=== PATIENT | female | born 1975 | race Caucasian/White ===

== ENCOUNTER 2021-07-15 08:07 | Inpatient (IN) | payer MEDICAID, SELFPAY ==
[2021-07-15] VITALS (22 sets, daily range): BP systolic 109–149; BP diastolic 47–86; PULSE 70–111; RESP 12–20; TEMP 36.6–43; O2SAT 87–99; BMI 23.1; BMI 24.0
--- NOTE | 2021-07-15 08:15 | HMH.EDGENADL ---
ED Disposition Clinical Impression: IVDA (intravenous drug abuse) complicating Cellulitis Qualifiers: Site of cellulitis: extremity Site of cellulitis of extremity: lower extremity Laterality: right Qualified Code(s): L03.115 - Cellulitis of right lower limb Disposition: Admitted As Inpatient Condition on Discharge: Good - Critical Care Critical Care Time: No Attestation: On , the high probability of a clinically significant, sudden or life threatening deterioration of the following system(s) required my full and direct attention, intervention and personal management. The time I documented below is in addition to time spent performing reported procedures but includes the following listed in this critical care notation. Medical Decision Making - Medical Records Medical records reviewed: Yes: I reviewed the patient's medical records. - [place] Inquiry Pt receiving controlled substance: No Vital Signs: 07/15/21 08:08 Temperature 98.4 F Temperature Source Oral Pulse Rate [Right Radial] 91 H Respiratory Rate 18 Blood Pressure [Right Arm] 111/47 L Blood Pressure Mean [Right Arm] 68 Blood Pressure Source [Right Arm] Automatic Cuff Blood Pressure Position [Right Arm] Sitting 02 Sat by Pulse Oximetry 97 Oxygen Delivery Method Room Air - Lab Data Lab results reviewed: Yes: I reviewed the patient's lab results. Lab Results 07/15/21 08:15: SARS-CoV-2 (PCR) Not detected, Influenza A Untype (PCR) Not detected, Influenza Type B (PCR) Not detected 07/15/21 08:30: WBC 8.0, RBC 4.24, Hgb 13.4, Hct 41.2, MCV 97.1, MCH 31.5 H, MCHC 32.5, RDW 14.9, Plt Count 143, MPV 12.3 H, Neut % (Auto) 71.4, Lymph % (Auto) 19.8, [place] % (Auto) 7.7, Eos % (Auto) 0.6, Baso % (Auto) 0.4, Neut # (Auto) 5.7, Lymph # (Auto) 1.6, [place] # (Auto) 0.6, Eos # (Auto) 0.1, Baso # (Auto) 0.0 07/15/21 08:30: Sodium 142, Potassium 3.5, Chloride 105, Carbon Dioxide 27, Anion Gap 13.5, BUN 4 L, Creatinine 0.40 L, Estimated Creat Clear 170, Estimated GFR 172, Est GFR ( Amer) 208, Glucose 113 H, Calcium 8.7, Total Bilirubin 0.4, AST 25, ALT 13, Alkaline Phosphatase 101, Total Protein 8.0, Albumin 3.7, Globulin 4.3 H, Albumin/Globulin Ratio 0.9 L 07/15/21 08:30: Lactate 1.3 07/15/21 08:30: ESR 67 H 07/15/21 08:30: C-Reactive Protein 236.9 H 07/15/21 08:50: Urine Color Yellow, Urine Appearance Clear, Urine pH 6.0, Ur Specific [place] <= 1.005, Urine Protein Negative, Urine Glucose (UA) Trace, Urine Ketones Negative, Urine Blood Trace-i, Urine Nitrate Negative, Urine Bilirubin Negative, Urine Urobilinogen 0.2, Ur Leukocyte Esterase Negative, Urine RBC 3-5, Urine WBC 3-5, Ur Squamous Epith Cells Occasional, Urine Bacteria None 07/15/21 08:50: Urine Opiates Screen Negative, Urine Methadone Screen Negative, Ur Barbituates Screen Negative, Ur Phencyclidine Scrn Negative, Ur Amphetamines Screen Negative, U Benzodiazepines Scrn Negative, Urine Cocaine Screen Negative, U Marijuana (THC) Screen Positive H Result diagrams: 07/15/21 08:30 07/15/21 08:30 Orders (Tests/Meds): ED MEDICATIONS Discontinued Medications Generic Name Dose Route Start Last Admin Trade Name Noam PRN Reason Stop Dose Admin Clindamycin Phosphate 900 mg/ 106 mls @ 100 mls/hr 07/15/21 08:21 07/15/21 10:19 Sodium Chloride IV 07/15/21 09:24 100 mls/hr ONCE ONE Administration Vancomycin HCl 1,250 mg/ 250 mls @ 125 mls/hr 07/15/21 09:45 07/15/21 12:02 Sodium Chloride IV 07/15/21 11:44 125 mls/hr ONCE ONE Administration Miscellaneous 1 each 07/15/21 09:34 Vancomycin Consult Request * 07/15/21 09:35 CONSULT PHARMACY ONE Morphine Sulfate 4 mg 07/15/21 10:50 07/15/21 12:14 Morphine 4mg/Ml Syringe IV 07/15/21 10:51 4 mg ONCE ONE Administration Ondansetron HCl 4 mg 07/15/21 10:50 07/15/21 12:14 Ondansetron 4mg/2ml Vial IV 07/15/21 10:51 4 mg ONCE ONE Administration ORDERS Category Date Time Status Blood Culture Stat Micro
--- NOTE | 2021-07-15 08:34 | XR_ITS ---
PROCEDURE: XR FOOT RT 2V CLINICAL INDICATION: cellulitis COMPARISON: CR FTR3 FOOT-RT-3 VIEWS from 05/06/2014 FINDINGS: No fracture or dislocation. No lytic or blastic change. There is normal mineralization. The joint spaces are well-preserved. No significant degenerative/arthritic changes. No erosive changes evident. There hypertrophic changes along the neck of the talus anteriorly and at the proximal and anterior aspect of the navicular. Soft tissue swelling is present along the dorsal aspect of the foot. No bony erosive change or soft tissue gas evident. IMPRESSION: Soft tissue swelling consistent with cellulitis otherwise negative. Dictated by: Carlito Vivar MD 07/15/2021 09:25 Carlito Vivar MD in [place] 07/15/2021 09:25
[2021-07-15 09:02] LABS: Microscopic, Urine URINE MICROSCOPIC (MICROSCOPIC)
[2021-07-15 09:05] LABS: Basophils % 0.4 % (0.1-2.0); Eosinophils # 0.1 K/mm3 (0.0-0.4); Eosinophils % 0.6 % (0.1-12.0); Hematocrit 41.2 % (37.0-47.0); Hemoglobin 13.4 g/dL (12.2-16.2); Lymphocytes # 1.6 K/mm3 (0.7-4.5); Lymphocytes % 19.8 % (10-50); Mean Corpuscular HGB Conc 32.5 g/dL (31.8-35.4); Mean Corpuscular Hemoglobin 31.5 pg (27.0-31.2); Mean Corpuscular Volume 97.1 fl (81-99); Mean Platelet Volume 12.3 fl (7.4-10.4); Monocytes # 0.6 K/mm3 (0.1-1.0); Monocytes % 7.7 % (1.7-9.3); Neutrophils # 5.7 K/mm3 (1.8-7.8); Neutrophils % 71.4 % (37.0-80.0); Platelet Count 143 K/mm3 (142-424); Red Blood Count 4.24 M/mm3 (4.20-5.40); Red Cell Distribution Width 14.9 % (11.5-17.5)
[2021-07-15 09:06] LABS: Appearance,Urine CLEAR (Clear); Bilirubin,Urine Negative (Negative); Blood, Urine TRACE-I (Negative); Color,Urine YELLOW (Yellow); Glucose,Urine (UA) TRACE (Negative); Ketones,Urine Negative (Negative); Leukocyte Esterase,Urine Negative (Negative); Nitrate,Urine Negative (Negative); Protein,Urine Negative (Negative); Specific Gravity, Urine <= 1.005 (1.005-1.030); Urobilinogen,Urine 0.2 EU/dl (0.2)
[2021-07-15 09:06] LABS: Coronavirus 19, PCR Not Detected (NotDetected); Influenza A, PCR Not Detected (NotDetected); Influenza B, PCR Not Detected (NotDetected)
[2021-07-15 09:11] LABS: Lactic Acid 1.3 mmol/L (0.7-2.1)
[2021-07-15 09:12] LABS: Alanine Aminotransferase 13 U/L (12-78); Albumin Level 3.7 g/dl (3.5-5.0); Albumin/Globulin Ratio 0.9 (1.1-1.8); Alkaline Phosphatase 101 U/L (38-126); Anion Gap 13.5 mEq/L (5-15); Aspartate Amino Transferase 25 U/L (14-36); Bilirubin,Total 0.4 mg/dl (0.2-1.3); Blood Urea Nitrogen 4 mg/dl (7-17); Calcium 8.7 mg/dl (8.4-10.2); Carbon Dioxide 27 mmol/L (22.0-30.0); Chloride 105 mmol/L (98-107); Creatinine Clearance Estimated 170 mL/min (50-200); Estimated Glomerular Filt Rate 172 ml/min (>60); GFR (African American) 208 ML/MIN (>60); Globulin 4.3 g/dL (1.3-3.2); Glucose 113 mg/dl (74-100); Potassium 3.5 mmoL/L (3.5-5.1); Sodium 142 mmol/L (136-145)
[2021-07-15 09:22] LABS: Squamous Epithelial Cell,Urine Occasional #/hpf (0-5)
[2021-07-15 09:28] LABS: Amphetamine/Metha Screen,Urine Negative ng/ml (<1000)
[2021-07-15 09:29] LABS: Barbiturates Screen,Urine Negative ng/ml (<200)
[2021-07-15 09:30] LABS: Benzodiazepines Screen,Urine Negative ng/ml (<200)
[2021-07-15 09:31] LABS: Cannabinoid Screen,Urine Positive ng/ml (<50)
[2021-07-15 09:32] LABS: Cocaine Screen,Urine Negative ng/ml (<300)
[2021-07-15 09:33] LABS: Methadone Screen,Urine Negative ng/ml (<300)
[2021-07-15 09:34] LABS: Opiate Screen,Urine Negative ng/ml (<300); Phencyclidine Screen,Urine Negative ng/ml (<25)
--- NOTE | 2021-07-15 09:37 | PC.NURSE ---
Spoke with Jesús in pharmacy and they are going to mix antibiotics and send down for pt
--- NOTE | 2021-07-15 10:47 | CT_ITS ---
PROCEDURE: CT LOWER LEG RT WO CON CLINICAL HISTORY: cellulitis, per [place] COMPARISON: CR XR FOOT RT 2V from 07/15/2021 TECHNIQUE: Axial images obtained with sagittal and coronal reformats. All CT scans at the facility use one or more dose reduction, viz: automated exposure control, ma/kV adjustment per patient size (including targeted exams where dose is matched to indication, i.e. head), or iterative reconstruction technique. FINDINGS: No fracture or dislocation. No bony destructive process that would indicate acute osteomyelitis. No radiopaque foreign body. There is diffuse soft tissue swelling about the ankle and along the dorsal aspect of the foot with diffuse subcutaneous edema. A localized fluid collection is not identified however, abscess evaluation is extremely limited without IV contrast. There are mild osteoarthritic changes at ankle and at the talonavicular joint and 2nd metatarsal tarsal joint. Small loose fragment is noted along the anterior and lateral aspect of the ankle joint measuring approximately 3 mm. IMPRESSION: 1. Diffuse soft tissue swelling about the foot and ankle with diffuse subcutaneous edema greater along the dorsal aspect of the foot but also present in the ankle. No localized fluid collections are identified however, abscess evaluation is extremely limited without IV contrast. 2. No evidence of acute osteomyelitis. Dictated by: Carlito Vivar MD 07/15/2021 12:00 Carlito Vivar MD in [place] 07/15/2021 12:00
[2021-07-15 11:10] LABS: C-Reactive Protein 236.9 mg/L (0-4)
[2021-07-15 11:14] LABS: Erythrocyte Sedimentation Rate 67 mm/hr (0-20)
--- NOTE | 2021-07-15 11:45 | PC.NURSE ---
Pt to CT
--- NOTE | 2021-07-15 12:12 | CA_ITS ---
APPROVED REPORT Right Lower Extremity Venous Study for DVT. Move Coordinator: Clau Dye RVT Indications Lower Extremity Pain: Right Lower Extremity Edema: Right SWELLING,REDNESS RT FOOT S/P LOG FALLING ON FOOT Risk Factors Trauma Vein Imaging CFV (R): compressive, spontaneous, phasic, augmentation FEM (R): compressive, spontaneous, phasic, augmentation POP (R): compressive, spontaneous, phasic, augmentation PTV (R): Compressible GSV (R): Compressible Peroneals (R):Compressible GAS (R): Compressible Findings Study suggests no evidence of DVT or SVT of the right lower extremity. Lymph nodes noted in the right groin, largest measuring 3.0cm. Conclusion Study suggests no evidence of DVT or SVT of the right lower extremity. Lymph nodes noted in the right groin, largest measuring 3.0cm. Critical Notification Physician Notified Date: 07/15/2021 Time: 12:48 Physician Name: Dr Aviles Electronically signed by : Carlito Vivar MD 07/15/2021 16:19:27
--- NOTE | 2021-07-15 12:23 | PC.NURSE ---
vascular here for doppler study
--- NOTE | 2021-07-15 13:26 | HMH.HP ---
*Admission Date: 07/15/21 *Chief complaint: infected rt foot *History of present illness: [facility]6[facility] F presents to the emergency department secondary to right foot pain. Patient states a log fell off of her stack of firewood and landed on her foot several days ago and is progressively worsened. Patient has a known history of IV drug abuse but repeatedly denies shooting up in her foot. Patient denies fever, nausea/vomit/diarrhea. She states she is still able to move her toes and can feel her foot. She is unable to bear weight because of severe pain. She has not recently been on antibiotics. [facility] History I have reviewed the patient's past medical history: Yes Medical History: Reports:: Hepatitis *Have you ever received a pneumonia vaccine?: No *Have you received a flu vaccine this season?: No - *Social History Smoking Status: Current some day smoker # Packs/Day (cigarettes): 1 Alcohol Intake: former *Occupational Status:: previously employed *Travel in the last 8 weeks: None Family Hx:: Non-contributory Review of Systems - Review of Systems Review of systems:: pertinent systems reviewed and negative unless documented below - Constitutional Denies fever(s) - Eyes Denies change in vision - ENT Denies headache(s) - *Cardiovascular Denies chest pain - *Respiratory Denies cough - *Gastrointestinal Denies abdominal pain - *Genitourinary Denies pelvic pain - *Musculoskeletal Reports joint pain, Reports joint swelling, Reports limited joint movement - Integumentary/Breasts Reports other (swollen red rt foot ) - *Neurologic Denies localized weakness, Denies headache(s) - Psychiatric Denies confusion Meds Allergies Allergy/AdvReac Type Severity Reaction Status Date / Time NO KNOWN ALLERGIES Allergy Unknown Uncoded 10/18/17 14:28 Exam Vital signs and Labs for Last 24 Hours: Temp Pulse Resp BP Pulse Ox 98.4 F 91 H 18 111/47 L 97 07/15/21 08:08 07/15/21 08:08 07/15/21 08:08 07/15/21 08:08 07/15/21 08:08 Laboratory Results - last 24 hr 07/15/21 08:15: SARS-CoV-2 (PCR) Not detected, Influenza A Untype (PCR) Not detected, Influenza Type B (PCR) Not detected 07/15/21 08:30: WBC 8.0, RBC 4.24, Hgb 13.4, Hct 41.2, MCV 97.1, MCH 31.5 H, MCHC 32.5, RDW 14.9, Plt Count 143, MPV 12.3 H, Neut % (Auto) 71.4, Lymph % (Auto) 19.8, [place] % (Auto) 7.7, Eos % (Auto) 0.6, Baso % (Auto) 0.4, Neut # (Auto) 5.7, Lymph # (Auto) 1.6, [place] # (Auto) 0.6, Eos # (Auto) 0.1, Baso # (Auto) 0.0 07/15/21 08:30: Sodium 142, Potassium 3.5, Chloride 105, Carbon Dioxide 27, Anion Gap 13.5, BUN 4 L, Creatinine 0.40 L, Estimated Creat Clear 170, Estimated GFR 172, Est GFR ( Amer) 208, Glucose 113 H, Calcium 8.7, Total Bilirubin 0.4, AST 25, ALT 13, Alkaline Phosphatase 101, Total Protein 8.0, Albumin 3.7, Globulin 4.3 H, Albumin/Globulin Ratio 0.9 L 07/15/21 08:30: Lactate 1.3 07/15/21 08:30: ESR 67 H 07/15/21 08:30: C-Reactive Protein 236.9 H 07/15/21 08:50: Urine Color Yellow, Urine Appearance Clear, Urine pH 6.0, Ur Specific [place] <= 1.005, Urine Protein Negative, Urine Glucose (UA) Trace, Urine Ketones Negative, Urine Blood Trace-i, Urine Nitrate Negative, Urine Bilirubin Negative, Urine Urobilinogen 0.2, Ur Leukocyte Esterase Negative, Urine RBC 3-5, Urine WBC 3-5, Ur Squamous Epith Cells Occasional, Urine Bacteria None 07/15/21 08:50: Urine Opiates Screen Negative, Urine Methadone Screen Negative, Ur Barbituates Screen Negative, Ur Phencyclidine Scrn Negative, Ur Amphetamines Screen Negative, U Benzodiazepines Scrn Negative, Urine Cocaine Screen Negative, U Marijuana (THC) Screen Positive H I & O for Last 24 hours: Intake & Output 07/13/21 07/14/21 07/15/21 07/16/21 11:59 11:59 11:59 11:59 Weight 135 lb - Constitutional no acute distress - *Routine HEENT Exam Head: Present: normocephalic Eye: Present: EOMI, PERRL ENT: Present: mucous membranes dry - *Routin
--- NOTE | 2021-07-15 14:26 | HMH.PHACONS ---
- Pharmacy Consult Date: 07/15/21 Time: 14:26 Referring provider: DR. JAMES Reason for Consult:: VANCOMYCIN DOSING Allergies and ADEs:: Allergies Allergy/AdvReac Type Severity Reaction Status Date / Time No Known Allergies Allergy Unverified 07/15/21 14:13 Home Medications:: Home Medications Medication Instructions Recorded Confirmed Type No Known Home Medications 07/15/21 07/15/21 History Height: 1.63 m Weight: 63.588 kg Laboratory Results:: Laboratory Results - last 24 hr 07/15/21 08:15: SARS-CoV-2 (PCR) Not detected, Influenza A Untype (PCR) Not detected, Influenza Type B (PCR) Not detected 07/15/21 08:30: WBC 8.0, RBC 4.24, Hgb 13.4, Hct 41.2, MCV 97.1, MCH 31.5 H, MCHC 32.5, RDW 14.9, Plt Count 143, MPV 12.3 H, Neut % (Auto) 71.4, Lymph % (Auto) 19.8, [place] % (Auto) 7.7, Eos % (Auto) 0.6, Baso % (Auto) 0.4, Neut # (Auto) 5.7, Lymph # (Auto) 1.6, [place] # (Auto) 0.6, Eos # (Auto) 0.1, Baso # (Auto) 0.0 07/15/21 08:30: Sodium 142, Potassium 3.5, Chloride 105, Carbon Dioxide 27, Anion Gap 13.5, BUN 4 L, Creatinine 0.40 L, Estimated Creat Clear 170, Estimated GFR 172, Est GFR ( Amer) 208, Glucose 113 H, Calcium 8.7, Total Bilirubin 0.4, AST 25, ALT 13, Alkaline Phosphatase 101, Total Protein 8.0, Albumin 3.7, Globulin 4.3 H, Albumin/Globulin Ratio 0.9 L 07/15/21 08:30: Lactate 1.3 07/15/21 08:30: ESR 67 H 07/15/21 08:30: C-Reactive Protein 236.9 H 07/15/21 08:50: Urine Color Yellow, Urine Appearance Clear, Urine pH 6.0, Ur Specific [place] <= 1.005, Urine Protein Negative, Urine Glucose (UA) Trace, Urine Ketones Negative, Urine Blood Trace-i, Urine Nitrate Negative, Urine Bilirubin Negative, Urine Urobilinogen 0.2, Ur Leukocyte Esterase Negative, Urine RBC 3-5, Urine WBC 3-5, Ur Squamous Epith Cells Occasional, Urine Bacteria None 07/15/21 08:50: Urine Opiates Screen Negative, Urine Methadone Screen Negative, Ur Barbituates Screen Negative, Ur Phencyclidine Scrn Negative, Ur Amphetamines Screen Negative, U Benzodiazepines Scrn Negative, Urine Cocaine Screen Negative, U Marijuana (THC) Screen Positive H Medical History: Reports:: Hepatitis Denies:: Cancer, Diabetes Mellitus Type 1, Diabetes Mellitus Type 2, MRSA Assessment and Plan (1) Cellulitis Status: Acute Qualifiers: Site of cellulitis: extremity Site of cellulitis of extremity: lower extremity Laterality: right Qualified Code(s): L03.115 - Cellulitis of right lower limb Category: Medical Code(s): L03.90 - Cellulitis, unspecified (2) IVDU (intravenous drug user) Status: Acute Category: Social Hx Code(s): F19.90 - Other psychoactive substance use, unspecified, uncomplicated - Assessment and plan all Dx Assessment and Plan for all problems:: Pharmacokinetic dosing service Objective: Patient: Floor: Age: 46 yo Serum creatinine: 0.40 mg/dL Height: 64.2 Inches Weight (kg): 63.5 Assessment: IBW (kg): 55.16 Dosing wt(kg): 63.5 Estimated Creatinine clearance (ml/min): 130 Clearance limited to 130 ml/min to reduce risk of overdosing. CRCL method: Cockcroft and Gault using ibw(default). Drug selected: Vancomycin Loading dose (mg): Vd (liters): 44.4 (factor used: 0.7 L/kg) [place] (hr-1): 0.112 Half life (hrs): 6.19 CLvanco=?? 4.973 L/hr Recommended dose: 1250 mg Interval: 12 hrs Infusion time (hrs): 2.0 Predicted peak (mcg/mL): 34.1 Predicted trough (mcg/mL): 11.13 Total body weight is being used for vancomycin dosing. Recommendations: Give Vancomycin 1250 mg q 12 hrs with an expected Cpeak of 34.1 mcg/ml and an expected Ctrough of 11.13 mcg/ml AUC 0-24 /MARCELA Data: MARCELA 0.5 mcg/mL:?? AUC/MARCELA:? 1005.4 MARCELA 1.0 mcg/mL:?? AUC/MARCELA:? 502.7 --------- MARCELA 1.5 mcg/mL:?? AUC/MARCELA:? 335.1 MARCELA 2.0 mc
--- NOTE | 2021-07-15 14:30 | HMH.PHAVTE ---
[facility] Pharmacy VTE Monitoring - Patient Demographics Admission date: 07/15/21 Report Date: 07/15/21 Time: 14:30 Allergies/Adverse Reactions: Patient Allergies No Known Allergies Allergy (Unverified 07/15/21 14:13) Height: 1.63 m Weight: 63.588 kg Patient Problems: Current Active Problems Cellulitis (Acute) IVDA (intravenous drug abuse) complicating (Acute) IVDU (intravenous drug user) (Acute) - VTE Risk Labs: VTE Related Lab Results Hgb 13.4 g/dL (12.2-16.2) 07/15/21 08:30 Hct 41.2 % (37.0-47.0) 07/15/21 08:30 Plt Count 143 K/mm3 (142-424) 07/15/21 08:30 BUN 4 mg/dl (7-17) L 07/15/21 08:30 Creatinine 0.40 mg/dl (0.52-1.04) L 07/15/21 08:30 Estimated Creat Clear 170 mL/min (50-200) 07/15/21 08:30 Was VTE Risk Assessment Performed: Yes VTE Score: 2 VTE Risk Level: Very Low Risk - Prophylaxis VTE Prophylaxis Ordered?: Yes Types of VTE Prophylaxis: TEDS Knee High Location of Applied Device: Right Leg
[2021-07-15 15:26] LABS: Urine Pregnancy, HCG Qual. Negative (Negative)
--- NOTE | 2021-07-15 15:36 | PC.NURSE ---
Pt currently down for surgery at this time. Left floor at approx 1500
--- NOTE | 2021-07-15 15:36 | HMH.ORTHOCON ---
*Admission Date: 07/15/21 *Reason for consult:: Right foot abscess *History of present illness: Patient is a 46-year-old female who presents with right foot pain and swelling times several days. She reports dropping a log on her foot several days ago. Denies any pertinent medical history except recreational drug usage. [facility] History I have reviewed the patient's past medical history: Yes Medical History: Reports:: Hepatitis Denies:: Cancer, Diabetes Mellitus Type 1, Diabetes Mellitus Type 2, MRSA *Have you ever received a pneumonia vaccine?: No *Have you received a flu vaccine this season?: No Amputation: No - *Social History Last grade of school completed: High school graduate Smoking Status: Current every day smoker Tobacco Type: cigarettes # Packs/Day (cigarettes): 15 Alcohol Intake: never Substance Use Type: marijuana *Occupational Status:: unemployed Housing: house Household Members: other *Travel in the last 8 weeks: None Family Hx:: No significant family history Review of Systems - Review of Systems Review of systems:: pertinent systems reviewed and negative unless documented below - Constitutional Reports fatigue, Reports weakness - Eyes Denies blind spots - ENT Denies abnormal hearing - *Cardiovascular Denies chest pain, Denies shortness of breath - *Respiratory Denies shortness of breath - *Gastrointestinal Reports nausea - *Genitourinary Denies abnormal periods - *Musculoskeletal Reports joint swelling - Integumentary/Breasts Reports redness - *Neurologic Denies confusion, Denies localized weakness, Denies headache(s) - Psychiatric Denies abnormal sleep pattern - Endocrine Reports cold intolerance - Hematologic/Lymphatic Denies easy bleeding Meds Home Medications Medication Instructions Recorded Confirmed Type No Known Home Medications 07/15/21 07/15/21 History Allergies Allergy/AdvReac Type Severity Reaction Status Date / Time No Known Allergies Allergy Unverified 07/15/21 14:13 Exam Vital signs and Labs for Last 24 Hours: Temp Pulse Resp BP Pulse Ox 98.7 F 72 16 109/59 L 96 07/15/21 14:00 07/15/21 14:00 07/15/21 14:00 07/15/21 14:00 07/15/21 14:13 Laboratory Results - last 24 hr 07/15/21 08:15: SARS-CoV-2 (PCR) Not detected, Influenza A Untype (PCR) Not detected, Influenza Type B (PCR) Not detected 07/15/21 08:30: WBC 8.0, RBC 4.24, Hgb 13.4, Hct 41.2, MCV 97.1, MCH 31.5 H, MCHC 32.5, RDW 14.9, Plt Count 143, MPV 12.3 H, Neut % (Auto) 71.4, Lymph % (Auto) 19.8, [place] % (Auto) 7.7, Eos % (Auto) 0.6, Baso % (Auto) 0.4, Neut # (Auto) 5.7, Lymph # (Auto) 1.6, [place] # (Auto) 0.6, Eos # (Auto) 0.1, Baso # (Auto) 0.0 07/15/21 08:30: Sodium 142, Potassium 3.5, Chloride 105, Carbon Dioxide 27, Anion Gap 13.5, BUN 4 L, Creatinine 0.40 L, Estimated Creat Clear 170, Estimated GFR 172, Est GFR ( Amer) 208, Glucose 113 H, Calcium 8.7, Total Bilirubin 0.4, AST 25, ALT 13, Alkaline Phosphatase 101, Total Protein 8.0, Albumin 3.7, Globulin 4.3 H, Albumin/Globulin Ratio 0.9 L 07/15/21 08:30: Lactate 1.3 07/15/21 08:30: ESR 67 H 07/15/21 08:30: C-Reactive Protein 236.9 H 07/15/21 08:50: Urine Color Yellow, Urine Appearance Clear, Urine pH 6.0, Ur Specific [place] <= 1.005, Urine Protein Negative, Urine Glucose (UA) Trace, Urine Ketones Negative, Urine Blood Trace-i, Urine Nitrate Negative, Urine Bilirubin Negative, Urine Urobilinogen 0.2, Ur Leukocyte Esterase Negative, Urine RBC 3-5, Urine WBC 3-5, Ur Squamous Epith Cells Occasional, Urine Bacteria None 07/15/21 08:50: Urine Opiates Screen Negative, Urine Methadone Screen Negative, Ur Barbituates Screen Negative, Ur Phencyclidine Scrn Negative, Ur Amphetamines Screen Negative, U Benzodiazepines Scrn Negative, Urine Cocaine Screen Negative, U Marijuana (THC) Screen Positive H 07/15/21 08:50: Urine HCG, Qual Negative I & O for Last 24 hours: Intake & Output 07/13/21 07/14/21 07/15/2116/21 11:59 11:
--- NOTE | 2021-07-15 16:49 | HMH.OPNOTE ---
Date of procedure: 07/15/21 Pre-op Diagnosis:: 1. Right foot abscess 2. Right lower extremity cellulitis Post-op Diagnosis:: Same Procedure performed:: 1. Right foot incision and drainage 2. Right foot hematoma evacuation Surgeon:: Elisabet Olivier DPM PHYSICIAN/INTERNIST:: Logan Alejandre Anesthesia: local (30cc 0.5% marcaine plain), LMA Estimated blood loss (mL): 20 Clinical Note:: New images and labs were discussed with the patient. We discussed conservative versus surgical treatment options. We discussed conservative care including continued oral vs IV antibiotics and local wound care versus surgical incision and drainage. Patient understands that they could have wound healing complications including delayed healing and infection. We discussed that if the wound does not heal, it is possible that they may need further debridement. Patient understands if infection spreads into the bone, it may warrant proximal amputation and could result in further loss of digits, loss of partial foot or loss of leg. We discussed the risks and benefits in great detail. Other surgical risks include: prolonged pain and swelling, further infection requiring oral or IV antibiotics, delay in healing of soft tissue or bone, nerve or blood vessel damage, CRPS/RSD, DVT, anesthesia complications, and even . All questions answered. Patient verbalized understanding. Consent obtained. Plan for OR now for right foot I&D. Operative findings:: Right foot where a large fluctuant boil with blistering discoloration over the dorsal lateral midfoot over the cuboid region. Cellulitis noted extending from the toes throughout the entire forefoot to the knee. There was 2+ pitting edema with significant erythema noted. There is bruising and discoloration over the dorsal distal forefoot. Abscess noted to dorsal lateral foot. No interdigital punctures or needle tracks noted. Blood clots noted to right 4th interspace and dorsal foot. Operative note:: On this date and time the patient was deemed an appropriate surgical candidate. With informed consent time patient was transferred from the preoperative holding area to the operating theater placed on table in a normal supine position. LMA anesthesia induced. IV vancomycin and clindamycin infused. Right lower extremities prepped and draped in normal sterile fashion. No tourniquet utilized. Right foot incision and drainage: Attention was directed to the right foot where a large fluctuant boil with blistering discoloration was noted over the dorsal lateral midfoot over the cuboid region. Cellulitis noted extending from the toes throughout the entire forefoot to the knee. There was 2+ pitting edema with significant erythema noted. Incision was made with a 15 blade directly over the blistered area approximately 3 x 1 x 1cm full-thickness through skin into subcutaneous tissue and deep fascia. Immediately 20 cc of purulent creamy yellowish-brownish drainage was expressed. Wound culture taken. There was some malodor noted. [id number]-[id number] pressure was applied to the incision and immediately 3cc of purulent drainage was expressed along with a thick yellow jd of tissue, which was sent to pathology. Next hemostat used to explore the area. There was some tracking noted to the right lateral ankle capsule ~1cm. Tracking noted to the 4-5th metatarsal bones ~3cm. An incision was also made over the medial foot over the talonavicular joint ~1cm deep. No purulence from this incision, some serous fluid expressed. Right foot hematoma evacuation: There is bruising and discoloration over the dorsal distal forefoot. An incision was also made over the 4th interspace, 5th toe and over the first metatarsal. No purulence expressed. There was several clots of blood consistent with prior injury and hematoma. They were expressed. Next all 5 incisions were flushed with gentamicin in irrigation pulse lavage. All wounds were all reexplored and no other signs of infection noted. 0-0 Prolene used to loose
--- NOTE | 2021-07-15 16:58 | HMH.ANESCL ---
[facility] Anesthesia Checklist - Structural Data Admitted From: Inpatient Planned Operative Procedure/s: i/d r foot Consent for Planned Operative Procedure(s) Verified: Yes - Airway Assessment C-Spine Mobility Assessed: Yes TMJ Mobility Assessed: Yes Dentition: Edentulous - Neurological Assessment Level of Consciousness: Awake, Alert, Appropriate - Anesthesia Plan Anesthesia Risk discussed: Yes Anesthesia Plan: Verified ASA Class: II Anesthesia Type: General [facility] History I have reviewed the patient's past medical history: Yes Medical History: Reports:: Hepatitis Denies:: Cancer, Diabetes Mellitus Type 1, Diabetes Mellitus Type 2, MRSA *Have you ever received a pneumonia vaccine?: No *Have you received a flu vaccine this season?: No Anesthesia experience/problems:: none Amputation: No - *Social History Last grade of school completed: High school graduate Smoking Status: Current every day smoker Tobacco Type: cigarettes # Packs/Day (cigarettes): 15 Alcohol Intake: never Substance Use Type: marijuana *Occupational Status:: unemployed Housing: house Household Members: other *Travel in the last 8 weeks: None Family Hx:: No significant family history
--- NOTE | 2021-07-15 16:59 | HMH.ANESI ---
[facility] Anesthesia Record Part I Intake, IV Amount: 1,500 Estimated blood loss (mL): 50 Urine output (mL): 0 Blood Pressure: 126/86 SaO2: 98 Pulse Rate: 85 Respiratory Rate: 12 Temperature: 98.4 F Patient is:: Awake, Stable Stable to PACU at:: 16:55
--- NOTE | 2021-07-15 20:27 | PC.NURSE ---
Pt sitting up in bed when returning from floor from surgery, eating supper. VSS. Dsg to R foot CDI.
[2021-07-16 00:30] VITALS: BP 111/60; BP 113/78; PULSE 80; RESP 16; RESP 18; TEMP 36.6; O2SAT 98; O2SAT 99
--- NOTE | 2021-07-16 03:38 | PC.NURSE ---
No acute changes t/o shift. Pt c/o of pain x3 this shift to the right foot, admin meds per MAR with relief. IV infusing NS @ 50ml/hr. Pt remains on RA with O2 stats >95%. Pt has been using the bedpan to void clear, yellow urine. VSS, call light within reach, will continue to monitor.
[2021-07-16 04:00] VITALS: BP 117/69; PULSE 63; RESP 16; TEMP 36.9; O2SAT 97
[2021-07-16 05:25] VITALS: BMI 24.0
[2021-07-16 07:29] LABS: Basophils % 0.1 % (0.1-2.0); Hematocrit 29.1 % (37.0-47.0); Lymphocytes # 0.7 K/mm3 (0.7-4.5); Lymphocytes % 9.1 % (10-50); Mean Corpuscular HGB Conc 35.5 g/dL (31.8-35.4); Mean Corpuscular Hemoglobin 34.7 pg (27.0-31.2); Mean Corpuscular Volume 97.7 fl (81-99); Mean Platelet Volume 9.4 fl (7.4-10.4); Monocytes # 0.4 K/mm3 (0.1-1.0); Monocytes % 5.2 % (1.7-9.3); Neutrophils # 6.8 K/mm3 (1.8-7.8); Neutrophils % 85.6 % (37.0-80.0); Platelet Count 214 K/mm3 (142-424); Red Blood Count 2.98 M/mm3 (4.20-5.40); Red Cell Distribution Width 15.1 % (11.5-17.5); White Blood Count 7.9 K/mm3 (4.8-10.8)
[2021-07-16 07:30] LABS: Alanine Aminotransferase 12 U/L (12-78); Albumin Level 3.1 g/dl (3.5-5.0); Albumin/Globulin Ratio 0.8 (1.1-1.8); Alkaline Phosphatase 84 U/L (38-126); Anion Gap 10.1 mEq/L (5-15); Aspartate Amino Transferase 19 U/L (14-36); Bilirubin,Total 0.2 mg/dl (0.2-1.3); Blood Urea Nitrogen 5 mg/dl (7-17); Calcium 8.2 mg/dl (8.4-10.2); Carbon Dioxide 27 mmol/L (22.0-30.0); Chloride 105 mmol/L (98-107); Creatinine Clearance Estimated 177 mL/min (50-200); Estimated Glomerular Filt Rate 172 ml/min (>60); GFR (African American) 208 ML/MIN (>60); Globulin 3.8 g/dL (1.3-3.2); Glucose 146 mg/dl (74-100); Potassium 4.1 mmoL/L (3.5-5.1); Sodium 138 mmol/L (136-145); Total Protein,Serum 6.9 g/dl (6.3-8.2)
--- NOTE | 2021-07-16 07:34 | PC.NURSE ---
Yes, from Jada GrandeRN
[2021-07-16 07:37] LABS: MANUAL DIFFERENTIAL MANUAL DIFFERENTIAL (MANUAL DIFF)
--- NOTE | 2021-07-16 07:56 | HMH.ORTHPN ---
Subjective Date: 07/16/21 <Sonja Simms - 07/16/21 08:17> Time: 07:56 <Sonja Simms - 07/16/21 08:17> Principal diagnosis: Cellulitis Right lower extremity <Sonja Simms - 07/16/21 08:17> Interval history: Patient seen and evaluated by myself and the CLINICAL DOCUMENTATION SPECIALIST. All orders per myself. Patient does have history of IV drug abuse and hep C. Do not recommend PICC line. She will need IV antibiotics. Okay to come to infusion daily for vancomycin and dressing changes as above. <Elisabet Olivier - 07/16/21 09:18> Patient resting sitting up in the bed this morning she is completed breakfast and stated she had some pain throughout the night the foot felt like it was throbbing. Patient was medicated and is stable this morning. We performed dressing change at bedside this morning was able to remove all packing flush the sites with normal saline and repacked with 1/2 packing strips soaked in Betadine and redressed with Betadine soaked 4 x 4, dry 4 x 4 Curlex and Christ wrap. Patient is to keep the foot elevated on a pillow she may use an ice pack as needed. Patient is stable for discharge when PCP is ready. Patient will need daily dressing changes and help with the packing for 2 weeks and will need Vanco infusions. Patient states she lives close that she has no problem coming to the hospital on a daily basis for the next couple weeks for IV infusion and dressing changes per infusion. <Sonja Simms - 07/16/21 08:17> PN: Obj Ex Vital signs: Temp Pulse Resp BP Pulse Ox 98.5 F 63 16 117/69 97 07/16/21 04:00 07/16/21 04:00 07/16/21 04:00 07/16/21 04:00 07/16/21 04:00 <Elisabet Olivier - 07/16/21 09:18> Temp Pulse Resp BP Pulse Ox 98.5 F 63 16 117/69 97 07/16/21 04:00 07/16/21 04:00 07/16/21 04:00 07/16/21 04:00 07/16/21 04:00 <Sonja Simms 07/16/21 08:17> - Constitutional no acute distress <Sonja Simms 07/16/21 08:17> - Routine HEENT Exam Head: Present: normocephalic <Sonja Simms 07/16/21 08:17> Eye: Present: EOMI <Sonja Simms 07/16/21 08:17> ENT: Present: mucous membranes moist <Sonja Simms 07/16/21 08:17> - Routine Neck Exam Present: trachea midline <Sonja Simms 07/16/21 08:17> - Routine Respiratory Exam Absent: respiratory distress <Sonja Simms 07/16/21 08:17> - Routine Cardiovascular Exam Present: RRR <Sonja Simms 07/16/21 08:17> - Routine Abdominal Exam Present: soft <Sonja Simms 07/16/21 08:17> - Detailed Lower Extremity Exam Top foot image: 1 - S/P 07/15/21; right foot incision drainage, right foot hematoma evacuation. Patient has 2 separate incisions 1 to the lateral 1 to the dorsal foot that have sutures intact and packing in place. Areas were flushed with saline and packed with 1/2 inch Betadine soaked packing covered with Betadine soaked 4 x 4, dry sterile dressing Christ wrap. Patient tolerated dressing changes morning well. Cellulitis is improving and pain is less than yesterday. <Sonja Simms 07/16/21 08:17> - Routine Back/Spine/Pelvis Exam Back/Spine: Present: full ROM <Sonja Simms 07/16/21 08:17> - Routine Skin Exam Present: erythema, dry, warm, wounds (Right foot cellulitis incision and drainage sutures intact) <Sonja Simms 07/16/21 08:17> - Routine Neurological Exam Present: alert, oriented X3, vision grossly intact, hearing grossly intact, normal speech <Sonja Simms 07/16/21 08:17> - Routine Psychiatric Exam Present: normal affect, cooperative <Sonja Simms 07/16/21 08:17> Progress Note: A&P (1) Cellulitis Status: Acute (2) IVDU (intravenous drug user) Status: Acute (3) Cellulitis of right lower extremity Status: Acute (4) Foot abscess, right Status: Acute <Sonja Simms 07/16/21 08:19> (1) Cellulitis Status: Acute (2) IVDU (intr
--- NOTE | 2021-07-16 07:59 | PC.NURSE ---
Pt will need a rolling walker rather than a cane, due to gait and mobility issues.
[2021-07-16 08:00] VITALS: BP 149/67; PULSE 71; RESP 14; TEMP 36.9; O2SAT 94
--- NOTE | 2021-07-16 08:01 | SW/DCPLANNER ---
Addendum entered by Chrissie Aguilar 07/16/21 09:35: Cayla Jay has stated that rolling walker is being delivered to patients room this AM. Original Note: I spoke with this patient regarding discharge plans: patient will need two weeks of IV Vanc Q12 and dressing changes. Patient is agreeable to return to hospital twice a day for two weeks for IV Vanc and dressing changes. Patient has requested a rolling walker be ordered prior to discharge. Patient will not have PICC line placed due to previous IV drug use. The plan per Dr Olivier is for this patient to discharge home today. Patients nurse (Tanya) has stated that she will get patient a post op shoe from ED.
[2021-07-16 08:04] LABS: Hypochromasia 1+; Lymphocytes % 8 % (10-50); Macrocytosis 1+; Monocytes % 2 % (2-9); Neutrophils % 90 % (42-76); Nucleated Red Blood Cells 1; Platelet Estimate Normal; Total Cells Counted 100
[2021-07-16 08:22] LABS: Hemoglobin 10.5 g/dL (12.2-16.2)
[2021-07-16 08:33] LABS: Erythrocyte Sedimentation Rate 103 mm/hr (0-20)
--- NOTE | 2021-07-16 09:50 | PC.NURSE ---
Addendum entered by Victor Manuel Ramos RN 07/16/21 09:52: cocci * Original Note: Notified E JOBY Ramsey at this time of positive blood cx's both anaerobic sets, with gram pos bacilli and gram pos coccyi
--- NOTE | 2021-07-16 09:54 | HMH.ANESII ---
[facility] Anesthesia Record Part II Discharge Time: 17:35 Destination: Medical Surgical Department PACU nurse assessment reviewed?: Yes Patient Condition:: Good Anesthesia Complications:: None Swallowing reflex intact?: Yes Cyanosis?: No Blood Pressure: 130/67 Pulse Rate: 78 Temperature: 98.4 F Mental Status: Alert & Oriented Pain level:: 10 Nausea and/or vomitting:: None Intake, IV Amount: 0
[2021-07-16 09:55] VITALS: BP 130/67; PULSE 78; TEMP 36.9
--- NOTE | 2021-07-16 10:14 | HMH.PTEV ---
Physical Therapy Evaluation Rehab PT IP Evaluation Start: 07/15/21 16:42 Freq: ONCE Status: Active Protocol: Document 07/16/21 09:55 PHORJASSON (Rec: 07/16/21 10:14 PHORNE [id number]) Subjective/History History History Pt is 49 year old female admitted to [facility] for cellulitis of R foot. Pt reports she will be living with her mother in one level home with ramp access after leaving hospital. Pt is NWB on R LE. Eval completed by FLAVIA Christine . Subjective Subjective Pt reports feeling well this morning. Pt stated she would like to use a rolling walker and walk with PT this morning. Rehab PT IP Eval Objective Appearance Patient Behavior Appropriate,Cooperative Patient Orientation Place,Name,Birthday,Year Difficulty following instructions none Speech Pattern Clear,Appropriate,Coherent Ambulation Patient Able to Ambulate Yes Ambulation Observation IP General Gait Pattern Observation Wide Based Gait Ambulation Distance (feet) 30 Ambulation Assistive Device Rolling Walker Ambulation Ability Contact Guard/Hand Hold Balance Ability to Arise Able, uses arms to help Sitting Balance Steady, safe Standing Balance Steady, wide stance Dynamic Sitting Balance Ability Normal Dynamic Standing Balance Ability Good Transfers Bed Transfer Ability Contact Guard/Hand Hold Chair Transfer Ability Contact Guard/Hand Hold Sit to Stand Bed Transfer Ability Contact Guard/Hand Hold Sit to Stand Chair Transfer Ability Contact Guard/Hand Hold ROM All Extremities PT ROM Status WFL MMT All Extremities PT MMT WFL Rehab PT IP prob,goals,plan Problems Date of Evaluation: 07/16/21 Discharge Plan PT Discharge Plan Pt would be safe to d/c home when medically stable. Pt provided with rolling walker and is ambulating in her room independently. Pt does not need inpatient PT. G -code Required No Eval Complexity Eval Charge Codes 15195 - Moderate Complexity PHYSICIAN CERTIFICATION: I certify the specified therapy services for Karen Alexis are required, authorized, and reviewed every 30 days.
--- NOTE | 2021-07-16 10:45 | HMH.DCSUM ---
General - General Admission date:: 07/15/21 Discharge date: 07/16/21 HPI HPI: this patient presented to the [facility] [id number] F presents to the emergency department secondary to right foot pain. Patient states a log fell off of her stack of firewood and landed on her foot several days ago and is progressively worsened. Patient has a known history of IV drug abuse but repeatedly denies shooting up in her foot. Patient denies fever, nausea/vomit/diarrhea. She states she is still able to move her toes and can feel her foot. She is unable to bear weight because of severe pain. She has not recently been on antibiotics. Hospital Course Hospital Course: Laboratory Tests 07/15/21 07/15/21 07/15/21 08:15 08:30 08:30 WBC 8.0 RBC 4.24 Hgb 13.4 Hct 41.2 MCV 97.1 MCH 31.5 H MCHC 32.5 RDW 14.9 Plt Count 143 MPV 12.3 H Neut % (Auto) 71.4 Lymph % (Auto) 19.8 [place] % (Auto) 7.7 Eos % (Auto) 0.6 Baso % (Auto) 0.4 Neut # (Auto) 5.7 Lymph # (Auto) 1.6 [place] # (Auto) 0.6 Eos # (Auto) 0.1 Baso # (Auto) 0.0 Total Counted Neutrophils % (Manual) Lymphocytes % (Manual) Monocytes % (Manual) Nucleated RBCs Platelet Estimate Hypochromasia Macrocytosis ESR Sodium 142 Potassium 3.5 Chloride 105 Carbon Dioxide 27 Anion Gap 13.5 BUN 4 L Creatinine 0.40 L Estimated Creat Clear 170 Estimated GFR 172 Est GFR ( Amer) 208 Glucose 113 H Lactate Calcium 8.7 Total Bilirubin 0.4 AST 25 ALT 13 Alkaline Phosphatase 101 C-Reactive Protein Total Protein 8.0 Albumin 3.7 Globulin 4.3 H Albumin/Globulin Ratio 0.9 L Urine Color Urine Appearance Urine pH Ur Specific [place] Urine Protein Urine Glucose (UA) Urine Ketones Urine Blood Urine Nitrate Urine Bilirubin Urine Urobilinogen Ur Leukocyte Esterase Urine RBC Urine WBC Ur Squamous Epith Cells Urine Bacteria Urine HCG, Qual Urine Opiates Screen Urine Methadone Screen Ur Barbituates Screen Ur Phencyclidine Scrn Ur Amphetamines Screen U Benzodiazepines Scrn Urine Cocaine Screen U Marijuana (THC) Screen SARS-CoV-2 (PCR) Not detected Influenza A Untype (PCR) Not detected Influenza Type B (PCR) Not detected 07/15/21 07/15/21 07/15/21 08:30 08:30 08:30 WBC RBC Hgb Hct MCV MCH MCHC RDW Plt Count MPV Neut % (Auto) Lymph % (Auto) [place] % (Auto) Eos % (Auto) Baso % (Auto) Neut # (Auto) Lymph # (Auto) [place] # (Auto) Eos # (Auto) Baso # (Auto) Total Counted Neutrophils % (Manual) Lymphocytes % (Manual) Monocytes % (Manual) Nucleated RBCs Platelet Estimate Hypochromasia Macrocytosis ESR 67 H Sodium Potassium Chloride Carbon Dioxide Anion Gap BUN Creatinine Estimated Creat Clear Estimated GFR Est GFR ( Amer) Glucose Lactate 1.3 Calcium Total Bilirubin AST ALT Alkaline Phosphatase C-Reactive Protein 236.9 H Total Protein Albumin Globulin Albumin/Globulin Ratio Urine Color Urine Appearance Urine pH Ur Specific [place] Urine Protein Urine Glucose (UA) Urine Ketones Urine Blood Urine Nitrate Urine Bilirubin Urine Urobilinogen Ur Leukocyte Esterase Urine RBC Urine WBC Ur Squamous Epith Cells Urine Bacteria Urine HCG, Qual Urine Opiates Screen Urine Methadone Screen Ur Barbituates Screen Ur Phencyclidine Scrn Ur Amphetamines Screen U Benzodiazepines Scrn Urine Cocaine Screen U Marijuana (THC) Screen SARS-CoV-2 (PCR) Influenza A Untype (PCR) Influenza Type B (PCR) 07/15/21 07/15/21 07/15/21 08:50 08:50 08:50 WBC RBC Hgb Hct MCV MCH
[2021-07-16 12:22] LABS: C-Reactive Protein 214.5 mg/L (0-4)
--- NOTE | 2021-07-16 14:46 | PC.NURSE ---
Pt called out for nurse and frantically stated i gotta go I don't need this shit you gotta get this out, I'm gonna to take it out. This nurse did take IV out as Vanc had finished. Explained d/c instructions, and told pt that she would need to come back bid x 2 weeks for IV abt @ 9 am and 9 pm. Pt stated she was going to come back for IV abt and her mom was gonna make her, then stated she probably wouldn't come back later this evening. This RN explained the importance of need for IV abt. Pt verbed understanding. Pt anxious. D/Cd at 1430.
--- NOTE | 2021-07-16 16:04 | PC.NURSE ---
Prior to d/c, pt expressed she was sorry for getting upset and the med she was getting wasn't shit
== END 2021-07-16 14:30 | disposition home or self-care (01) | DRG 580 ==
LOC: ER 08:35 → 2ND 12:38
PROVIDERS: Podiatrist; Admitting Provider Emergency Medicine; Emergency Provider Family Medicine; PCP Emergency Medicine; Visit Provider Emergency Medicine
PROC: 0J9Q0ZZ Drainage of Right Foot Subcutaneous Tissue and Fascia, Open Approach (ICD-10-PCS; principal; 2021-07-15 15:00)
DX: L03.115 Cellulitis of right lower limb (principal); L02.611 Cutaneous abscess of right foot; Z20.822 Contact with and (suspected) exposure to COVID-19; F17.210 Nicotine dependence, cigarettes, uncomplicated; F19.90 Other psychoactive substance use, unspecified, uncomplicated
CPT/HCPCS: 28008; 28899; 36415; 73620; 73700; 80053; 80305; 81001; 81025; 83605; 83735; 85007; 85025; 85651; 86140; 87040; 87070; 87075; 87077; 87186; 87205; 88304; 93971; 96365; 96367; 96375; 97162; 99284; C9803; G0378; J2405; J3370; U0003; U0005

== ENCOUNTER → 2021-07-17 09:49 | Outpatient (CLI) | payer MEDICAID, SELFPAY ==
[2021-07-17 11:16] LABS: Vancomycin,Trough < 5.0 ug/mL (5.0-10.0)
[2021-07-17 11:22] VITALS: BP 153/54; PULSE 79; RESP 17; TEMP 36.6; O2SAT 100
[2021-07-17 14:00] VITALS: BP 149/56; PULSE 71; RESP 17; TEMP 36.6; O2SAT 100
--- NOTE | 2021-07-17 15:13 | PC.NURSE ---
[id number] spoke with Sonja Simms in podiatry and relayed the pts wound condition and fragile state. Louis stated she would contact the pt and get her in for an appointment at the beginning of the week.
[2021-07-17 21:05] VITALS: BP 148/82; PULSE 93; RESP 18; TEMP 36.8; O2SAT 100
--- NOTE | 2021-07-18 00:08 | PC.NURSE ---
LATE ENTRY: AT 2330 PATIENT WAS MAKING NOISE IN THE ROOM. RN TO BEDSIDE TO CHECK. PATIENT IN RESTROOM. PATIENT EXPRESSED MULTIPLE CONCERNS ABOUT NUMBER OF IV STICKS REQUIRED AT EACH INFUSION TO OBTAIN ACCESS. THIS ENCOUNTER REQUIRED 5 STICKS TO GET A LINE STARTED. SHE WOULD LIKE A PICC LINE, BUT SAYS NO ONE WILL LISTEN TO HER. SHE STATED OVER AND OVER THAT SHE FEELS UNSAFE IN ALL AREAS OF THE HOSPITAL WELL CONCERNS ABOUT THE SURGICAL PROCEDURE HAVING BEEN MESSED UP . SHE STATES THAT SHE DOES NOT FEEL SAFE RETURNING FOR FUTURE INFUSIONS IF SHE CANNOT HAVE A MORE PERMANENT LINE PLACED FOR EASIER ACCESS.
--- NOTE | 2021-07-18 00:15 | PC.NURSE ---
LATE ENTRY (CONT.) SHE ALSO EXPRESSED CONCERN THAT SHE HAD VERY LONG WAIT TIMES IN PREVIOUS VISITS AND THAT NO ONE LISTENED TO ME WHEN I WAS IN PAIN . THIS RN ASKED THE PT WHAT CAN I DO IN THIS MOMENT TO HELP YOU FEEL SAFE? . NO REPLY FROM PATIENT. SHE WOULD LIKE TO KEEP IV ACCESS IN WHEN SHE LEAVES TONIGHT SO THAT SHE DOESN'T HAVE TO BE STUCK AGAIN TOMORROW. SHE THREATENED TO NOT RETURN TO THE HOSPITAL FOR FURTHER INFUSIONS SINCE SHE FEELS UNSAFE . WILL PAGE DR. HOUSE TO SEE ABOUT GETTING AN ORDER TO KEEP IV ACCESS IN PLACE. PT INFORMED THAT WITHOUT AN ORDER FROM MD, THE IV MUST BE REMOVED BEFORE SHE LEAVES. PT V/U
--- NOTE | 2021-07-18 00:43 | PC.NURSE ---
LATE ENTRY. AT 2350 ON 07/17/2021 DR. HOUSE WAS PAGED.
--- NOTE | 2021-07-18 00:43 | PC.NURSE ---
LATE ENTRY. AT 0015 INFUSION COMPLETE. PT UPSET THAT SHE DOES NOT RECOGNIZE THE NAME OF THE ANTIBIOTIC ON THE BAG. LABEL EXPLAINED TO PATIENT AND COMPARED TO PAPER ORDER IN PT POSSESSION. PT ANGRY AND STATES SHE IS CALLING THE POLICE. SALES EXEC CALLED TO UNIT. AT 0020: SALES EXEC ON UNIT SPEAKING WITH PT. NO RETURN CALL FROM DR. HOUSE AT THIS TIME. PT AWARE THAT IV MUST BE REMOVED BEFORE SHE LEAVES. PT V/U. AT 0025 22G IV REMOVED FROM LEFT UPPER ARM. CATHLON TIP INTACT. PT TOLERATED WELL. AT 0035 PT AMBULATORY OFF UNIT WITH BELONGINGS
--- NOTE | 2021-07-18 00:51 | PC.NURSE ---
LATE ENTRY AT 0015 WHEN INFUSION WAS COMPLETE, PT WAS UPSET AND REFUSED COMPLETION VITAL SIGNS.
--- NOTE | 2021-07-18 00:52 | PC.NURSE ---
LATE ENTRY. PT AMBULATORY WITH WALKER TO UNIT AT 2100 ON 07/17/2021
--- NOTE | 2021-07-18 00:53 | PC.NURSE ---
LATE ENTRY. IV INITIATED AT 2150 ON 07/17/2021. 5 ATTEMPTS (2 BY Ivan SHERMAN RN AND 3 BY Ivan OVIEDO RN) 22G PLACED IN LEFT UPPER ARM. PT TOLERATED ATTEMPTS WELL.
--- NOTE | 2021-07-18 01:09 | PC.NURSE ---
late entry: 2199 This RN took pt two warm blankets and two pillows, elevated affected foot with pillow in reclining chair. Pt was offered a beverage and snack, which she declined. Small light on above sink and lights turned down per pt request.
== END ==
PROVIDERS: PCP Emergency Medicine; Visit Provider Podiatrist
DX: L03.115 Cellulitis of right lower limb (principal); Z51.81 Encounter for therapeutic drug level monitoring
CPT/HCPCS: 80202; 96365; 96366; G0463; J3370

== ENCOUNTER → 2021-07-27 09:50 | Outpatient (CLI) | payer MEDICAID, SELFPAY ==
[2021-07-27 10:12] LABS: Basophils # 0.1 K/mm3 (0-0.2); Basophils % 0.8 % (0.1-2.0); Eosinophils % 0.4 % (0.1-12.0); Hematocrit 35.5 % (37.0-47.0); Hemoglobin 11.2 g/dL (12.2-16.2); Lymphocytes # 2.2 K/mm3 (0.7-4.5); Lymphocytes % 33.3 % (10-50); Mean Corpuscular HGB Conc 31.5 g/dL (31.8-35.4); Mean Corpuscular Hemoglobin 30.8 pg (27.0-31.2); Mean Corpuscular Volume 97.7 fl (81-99); Mean Platelet Volume 9.4 fl (7.4-10.4); Monocytes # 0.3 K/mm3 (0.1-1.0); Monocytes % 4.5 % (1.7-9.3); Platelet Count 178 K/mm3 (142-424); Red Blood Count 3.64 M/mm3 (4.20-5.40); White Blood Count 6.5 K/mm3 (4.8-10.8)
[2021-07-27 10:37] LABS: Erythrocyte Sedimentation Rate 31 mm/hr (0-20)
[2021-07-27 12:05] LABS: Chloride 104 mmol/L (98-107); Sodium 138 mmol/L (136-145)
[2021-07-27 12:06] LABS: Potassium 4.4 mmoL/L (3.5-5.1)
[2021-07-27 12:08] LABS: Alanine Aminotransferase 9 U/L (12-78); Albumin Level 3.3 g/dl (3.5-5.0); Albumin/Globulin Ratio 0.9 (1.1-1.8); Alkaline Phosphatase 86 U/L (38-126); Anion Gap 11.4 mEq/L (5-15); Aspartate Amino Transferase 19 U/L (14-36); Bilirubin,Total < 0.1 mg/dl (0.2-1.3); Blood Urea Nitrogen 16 mg/dl (7-17); Carbon Dioxide 27 mmol/L (22.0-30.0); Estimated Glomerular Filt Rate 133 ml/min (>60); GFR (African American) 161 ML/MIN (>60); Globulin 3.6 g/dL (1.3-3.2); Total Protein,Serum 6.9 g/dl (6.3-8.2)
[2021-07-27 12:09] LABS: Calcium 8.6 mg/dl (8.4-10.2); Glucose 96 mg/dl (74-100)
== END ==
PROVIDERS: Visit Provider Podiatrist
DX: L97.513 Non-pressure chronic ulcer of other part of right foot with necrosis of muscle (principal); L02.611 Cutaneous abscess of right foot; Z98.890 Other specified postprocedural states
CPT/HCPCS: 36415; 80053; 85025; 85651; 86140

== ENCOUNTER → 2021-07-30 09:45 | Outpatient (CLI) | payer MEDICAID, SELFPAY | PROVIDERS: Visit Provider Podiatrist | DX: Z01.812 Encounter for preprocedural laboratory examination (principal); Z11.52 Encounter for screening for COVID-19; L03.115 Cellulitis of right lower limb | CPT/HCPCS: C9803; U0003; U0005 ==

== ENCOUNTER 2021-07-30 13:33 | Day surgery (SDC) | payer MEDICAID, SELFPAY ==
[2021-07-30 13:49] VITALS: BP 112/47; PULSE 71; RESP 18; TEMP 36.5; O2SAT 100; BMI 22.8
--- NOTE | 2021-07-30 15:34 | [facility]H.OPNOTE ---
Date of procedure: 07/30/21 Pre-op Diagnosis:: 1. Right foot ulcer x2, right ankle ulcer 2. Right foot cellulitis 3. S/p right foot abscess I&D on 07/15/21 4. Right foot crush injury Post-op Diagnosis:: Same Procedure performed:: 1. Right foot wound debridement x2 2. Right ankle wound debridement 3. Right foot suture removal Surgeon:: Elisabet Olivier DPM Anesthesia: local (0.5% marcaine plain) Estimated blood loss (mL): 3 Clinical Note:: Patient seen in the podiatry clinic this morning with eschar in gangrenous tissue. Recommend surgical debridement. We discussed conservative versus surgical treatment options. We discussed conservative care including continued oral antibiotics and local wound care versus surgical incision and drainage. Patient understands that they could have wound healing complications including delayed healing and infection. We discussed that if the wound does not heal, it is possible that they may need further debridement. Patient understands if infection spreads into the bone, it may warrant proximal amputation and could result in further loss of digits, loss of partial foot or loss of leg. We discussed the risks and benefits in great detail. Other surgical risks include: prolonged pain and swelling, further infection requiring oral or IV antibiotics, delay in healing of soft tissue or bone, nerve or blood vessel damage, CRPS/RSD, DVT, anesthesia complications, and even . All questions answered. Patient verbalized understanding. Consent obtained. Operative findings:: S/p right foot I&D. There are sutures loose to right dorsal medial foot and over the 5th metatarsal. Skin sloughing, necrotic tissue noted to dorsal midfoot wound. There is a 6x 6cm of discoloration surrounding the dorsal midfoot ulcer extending to ankle, now dark necrotic eschar and slough. Pre debridement, right dorsal midfoot-ankle ulcer: 10.1 x 7.1 x 0.5cm, 70% fibrotic yellow tissue, 15% brown eschar, 15% bleeding granular tissue. 2cc purulent yellow creamy drainage from lateral ankle. Post debridement sharply excisionly debrided with 15' blade, forceps, curette thru skin, subq into/involving deep fascia over dorsal midfoot extensor tendons. The wound did not extend to bone. The lateral ankle does track/undermine proximal lateral >1.3cm. Post debridement: 1) The dorsal ankle wound was 60% granular, 40% yellow fibrotic tissue and measured 11.1 x 8.0 x 0.7cm. 2) The dorsal medial midfoot wound was 50% granular, 50% fibrotic yellow tissue and measured 1.5 x 1.1 x 0.2 cm. 3) The dorsal lateral 5th metatarsal wound was 50% granular, 50% fibrotic yellow tissue and measured 1.5 x 1.1 x 0.2 cm. Operative note:: On this date and time patient was deemed an appropriate surgical candidate. With informed consent signed, the patient was taken to the local procedure operating theater room. The patient was positioned supine. No anesthesia was induced. No tourniquet used. Pre-op right ankle block given with 20 cc 0.5% marcaine plain. Right foot suture removal: The right extremity was prepped and draped in normal sterile fashion. All sutures were removed. Right foot wound debridement x2: Attention was directed to the dorsal aspect of the right foot where there is a wound noted extending into the ankle. There was a separate wound noted to the dorsal medial midfoot and over the dorsal lateral fifth metatarsal. Post wounds are sharply excisionally debrided with a 15 blade and forceps through skin into subcutaneous tissue. No purulence or malodor noted from these 2 wounds. Post debridement: see operative findings. Right ankle wound debridement: Attention then directed to the dorsal midfoot where an ulcer was noted extending to the dorsal anterior ankle. Necrotic tissue with brown-black eschar noted. Some purulence noted to the proximal lateral aspect of the wound. Wound culture taken. Sharp debridement performed. All non-viable soft tissue removed and sent to pathology as ulcer
[2021-07-30 15:36] VITALS: BP 123/62; PULSE 73; RESP 16; TEMP 36.6; O2SAT 100
[2021-07-30 15:45] VITALS: BP 123/62; PULSE 73; RESP 16; O2SAT 100
== END 2021-07-30 13:45 | disposition home or self-care (01) ==
LOC: OUTP 13:35
PROVIDERS: PCP Emergency Medicine; Visit Provider Podiatrist
PROC: (CPT 11043; principal; 2021-07-30 14:30)
DX: M25.371 Other instability, right ankle (principal); S97.81XA Crushing injury of right foot, initial encounter; L97.513 Non-pressure chronic ulcer of other part of right foot with necrosis of muscle; L03.115 Cellulitis of right lower limb; Z91.19 Patient's noncompliance with other medical treatment and regimen
CPT/HCPCS: 11043; 11046 ×3; 87070; 87077; 87186; 87205

== ENCOUNTER → 2021-08-10 12:43 | Outpatient (CLI) | payer MEDICAID, SELFPAY | PROVIDERS: Visit Provider Podiatrist | DX: Z01.812 Encounter for preprocedural laboratory examination (principal); Z11.52 Encounter for screening for COVID-19; L02.611 Cutaneous abscess of right foot | CPT/HCPCS: C9803; U0003; U0005 ==

== ENCOUNTER → 2021-08-19 12:43 | Outpatient (CLI) | payer MEDICAID, SELFPAY | PROVIDERS: Visit Provider Podiatrist | DX: Z01.812 Encounter for preprocedural laboratory examination (principal); Z11.52 Encounter for screening for COVID-19; L97.513 Non-pressure chronic ulcer of other part of right foot with necrosis of muscle | CPT/HCPCS: C9803; U0003; U0005 ==

== ENCOUNTER 2021-08-20 13:11 | Day surgery (SDC) | payer MEDICAID, SELFPAY ==
[2021-08-17 11:11] VITALS: BMI 23.1
[2021-08-20 13:34] VITALS: BP 131/88; PULSE 83; RESP 18; TEMP 36.9; O2SAT 100
[2021-08-20 15:08] VITALS: BP 133/83; PULSE 84; RESP 18; O2SAT 99
--- NOTE | 2021-08-20 15:16 | [facility]H.OPNOTE ---
Date of procedure: 08/20/21 Pre-op Diagnosis:: 1. Right foot wound 2. Right ankle wound 3. Right foot crush injury 4. S/p right foot abscess I&D Post-op Diagnosis:: Same Procedure performed:: 1. Right foot wound debridement 2. Right ankle wound debridement 3. Right foot application of wound vac ([facility]) Surgeon:: Elisabet Olivier DPM Anesthesia: local (10cc 0.5% marcaine plain) Estimated blood loss (mL): 2 Clinical Note:: She is a 46-year-old female who had on 07/15/21, S/p right foot I&D. And on 07/30/21, S/p Right foot wound debridement x2, Right ankle wound debridement, Right foot suture removal. Recommend surgical debridement and wound vac application. We discussed conservative versus surgical treatment options. We discussed conservative care including continued oral antibiotics and local wound care versus surgical incision and drainage. Patient understands that they could have wound healing complications including delayed healing and infection. We discussed that if the wound does not heal, it is possible that they may need further debridement. Patient understands if infection spreads into the bone, it may warrant proximal amputation and could result in further loss of digits, loss of partial foot or loss of leg. We discussed the risks and benefits in great detail. Other surgical risks include: prolonged pain and swelling, further infection requiring oral or IV antibiotics, delay in healing of soft tissue or bone, nerve or blood vessel damage, CRPS/RSD, DVT, anesthesia complications, and even . All questions answered. Patient verbalized understanding. Consent obtained. Operative findings:: The patient had 2 wounds noted to the right foot. One was smaller and circular located over the dorsal medial midfoot. The other wound was noted to the dorsal aspect of the right dorsal lateral foot/ankle which extended from the metatarsal distally to just below the ankle proximally. The wounds were sharply excisionally debrided with 15 blade, forceps and curette through skin into/involving subcutaneous tissue. They did not extend into the deep fascia or to the level of the bone. There was no exposed tendons noted. Post debridement the medial midfoot wound measured 1.2 x 0.9 x 0.1 cm, 100% granular. Post debridement the lateral ankle wound measured 10.8 x 7.7 x 0.4 cm. Operative note:: On this date and time patient was deemed an appropriate surgical candidate. With informed consent signed, the patient was taken to the local procedure operating theater room. The patient was positioned supine. No anesthesia was induced. No tourniquet used. Pre-op right ankle block given with 10 cc 0.5% marcaine plain. The right extremity was prepped and draped in normal sterile fashion. Right foot wound debridement: Attention was directed to the dorsal medial midfoot where wound noted. It had da-wound callus. The wound was sharply excisionally debrided with a 15 blade, forceps and curette through skin into subcutaneous tissue. No purulence or malodor noted. Post debridement: see operative findings. Right ankle wound debridement: Attention then directed to the dorsal lateral foot where an ulcer was noted extending to the dorsal anterior ankle. No necrotic tissue with brown-black eschar noted. No purulence noted to the wound. Sharp debridement performed. All non-viable soft tissue removed through skin, subcutaneous tissue but not into the deep fascia. The wound did not extend to the level of the bone. The skin edges were also debrided with 15' blade, some bleeding noted. Post debridement: see operative findings. Next saline irrigation mixed with gentamicin was used to flush the wounds. The wounds were reexplored and no further signs of infection noted. The skin was cleansed. Application of wound vac: A [employer] wound vac was then applied to the wound in standard technique. The seal was checked and vac set to 125mmHg continuous medium. A dry sterile dressing was then applied o
[2021-08-20 15:19] VITALS: BP 133/83; PULSE 84; RESP 18; O2SAT 99
== END 2021-08-20 15:21 | disposition home or self-care (01) ==
LOC: OUTP 13:13
PROVIDERS: PCP Emergency Medicine; Visit Provider Podiatrist
PROC: (CPT 11042; principal; 2021-08-20 14:00)
DX: S97.81XA Crushing injury of right foot, initial encounter (principal); M25.371 Other instability, right ankle; L97.513 Non-pressure chronic ulcer of other part of right foot with necrosis of muscle; L03.115 Cellulitis of right lower limb; Z91.19 Patient's noncompliance with other medical treatment and regimen; F17.210 Nicotine dependence, cigarettes, uncomplicated; A49.8 Other bacterial infections of unspecified site; L02.611 Cutaneous abscess of right foot; Z79.899 Other long term (current) drug therapy; W17.89XA Other fall from one level to another, initial encounter
CPT/HCPCS: 11042; 11045 ×3

== ENCOUNTER → 2021-08-31 16:49 | Outpatient (CLI) | payer MEDICAID, SELFPAY ==
[2021-08-31 17:15] LABS: Basophils % 0.8 % (0.1-2.0); Eosinophils % 0.5 % (0.1-12.0); Hematocrit 40.3 % (37.0-47.0); Hemoglobin 12.6 g/dL (12.2-16.2); Lymphocytes # 1.8 K/mm3 (0.7-4.5); Lymphocytes % 44.6 % (10-50); Mean Corpuscular HGB Conc 31.2 g/dL (31.8-35.4); Mean Corpuscular Volume 99.3 fl (81-99); Mean Platelet Volume 10.9 fl (7.4-10.4); Monocytes # 0.3 K/mm3 (0.1-1.0); Monocytes % 7.5 % (1.7-9.3); Neutrophils # 1.8 K/mm3 (1.8-7.8); Neutrophils % 46.5 % (37.0-80.0); Platelet Count 107 K/mm3 (142-424); Red Blood Count 4.05 M/mm3 (4.20-5.40); Red Cell Distribution Width 16.7 % (11.5-17.5)
[2021-08-31 17:40] LABS: Erythrocyte Sedimentation Rate 62 mm/hr (0-20)
[2021-08-31 22:19] LABS: Chloride 106 mmol/L (98-107); Potassium 4.5 mmoL/L (3.5-5.1); Sodium 140 mmol/L (136-145)
[2021-08-31 22:21] LABS: Blood Urea Nitrogen 8 mg/dl (7-17); Estimated Glomerular Filt Rate 239 ml/min (>60); GFR (African American) 290 ML/MIN (>60)
[2021-08-31 22:22] LABS: Alanine Aminotransferase 10 U/L (12-78); Albumin Level 4.2 g/dl (3.5-5.0); Albumin/Globulin Ratio 1.2 (1.1-1.8); Alkaline Phosphatase 76 U/L (38-126); Anion Gap 12.5 mEq/L (5-15); Aspartate Amino Transferase 40 U/L (14-36); Bilirubin,Total 0.6 mg/dl (0.2-1.3); Carbon Dioxide 26 mmol/L (22.0-30.0); Globulin 3.5 g/dL (1.3-3.2); Glucose 84 mg/dl (74-100); Total Protein,Serum 7.7 g/dl (6.3-8.2)
[2021-08-31 22:28] LABS: C-Reactive Protein 5.4 mg/L (0-4)
== END ==
PROVIDERS: Visit Provider Podiatrist
DX: Z98.890 Other specified postprocedural states (principal); L97.512 Non-pressure chronic ulcer of other part of right foot with fat layer exposed; A49.8 Other bacterial infections of unspecified site
CPT/HCPCS: 36415; 80053; 85025; 85651; 86140

== ENCOUNTER → 2021-09-18 13:00 | Outpatient (CLI) | payer MEDICAID, SELFPAY ==
[2021-09-18 13:53] LABS: Basophils # 0.1 K/mm3 (0-0.2); Basophils % 1.5 % (0.1-2.0); Eosinophils # 0.1 K/mm3 (0.0-0.4); Eosinophils % 1.3 % (0.1-12.0); Hematocrit 38.7 % (37.0-47.0); Hemoglobin 12.1 g/dL (12.2-16.2); Lymphocytes # 1.7 K/mm3 (0.7-4.5); Lymphocytes % 45.8 % (10-50); Mean Corpuscular HGB Conc 31.3 g/dL (31.8-35.4); Mean Corpuscular Hemoglobin 30.3 pg (27.0-31.2); Mean Corpuscular Volume 96.8 fl (81-99); Monocytes # 0.2 K/mm3 (0.1-1.0); Monocytes % 5.7 % (1.7-9.3); Neutrophils # 1.7 K/mm3 (1.8-7.8); Neutrophils % 45.7 % (37.0-80.0); Platelet Count 81 K/mm3 (142-424); Red Cell Distribution Width 16.1 % (11.5-17.5); White Blood Count 3.7 K/mm3 (4.8-10.8)
[2021-09-18 13:55] LABS: Chloride 103 mmol/L (98-107); Potassium 4.7 mmoL/L (3.5-5.1); Sodium 139 mmol/L (136-145)
[2021-09-18 13:57] LABS: Alanine Aminotransferase 16 U/L (12-78); Aspartate Amino Transferase 53 U/L (14-36); Blood Urea Nitrogen 16 mg/dl (7-17); Estimated Glomerular Filt Rate 133 ml/min (>60); GFR (African American) 161 ML/MIN (>60)
[2021-09-18 13:58] LABS: Albumin Level 4.2 g/dl (3.5-5.0); Albumin/Globulin Ratio 1.2 (1.1-1.8); Alkaline Phosphatase 40 U/L (38-126); Anion Gap 11.7 mEq/L (5-15); Bilirubin,Total 0.6 mg/dl (0.2-1.3); Calcium 8.5 mg/dl (8.4-10.2); Carbon Dioxide 29 mmol/L (22.0-30.0); Globulin 3.5 g/dL (1.3-3.2); Glucose 89 mg/dl (74-100); Total Protein,Serum 7.7 g/dl (6.3-8.2)
[2021-09-18 14:04] LABS: C-Reactive Protein 38.1 mg/L (0-4)
[2021-09-18 14:31] LABS: Erythrocyte Sedimentation Rate 55 mm/hr (0-20)
[2021-09-18 21:30] LABS: Barbiturates Screen,Urine Negative ng/ml (<200); Benzodiazepines Screen,Urine Positive ng/ml (<200)
[2021-09-18 21:31] LABS: Cannabinoid Screen,Urine Positive ng/ml (<50)
[2021-09-18 21:32] LABS: Cocaine Screen,Urine Negative ng/ml (<300); Methadone Screen,Urine Negative ng/ml (<300)
[2021-09-18 21:33] LABS: Opiate Screen,Urine Positive ng/ml (<300)
[2021-09-18 21:34] LABS: Phencyclidine Screen,Urine Negative ng/ml (<25)
[2021-09-18 22:33] LABS: Amphetamine/Metha Screen,Urine Positive ng/ml (<1000)
== END ==
PROVIDERS: Nurse Practitioner; Visit Provider Emergency Medicine
DX: L97.519 Non-pressure chronic ulcer of other part of right foot with unspecified severity (principal); Z98.890 Other specified postprocedural states; Z79.899 Other long term (current) drug therapy
CPT/HCPCS: 36415; 80053; 80305; 85025; 85651; 86140

== ENCOUNTER 2021-10-15 14:00 | Outpatient (RCR) | payer MEDICAID, SELFPAY ==
--- NOTE | 2021-07-27 10:02 | HMH.PTOPWND ---
Rehab Outpt Wound Evaluation Rehab OP Wound Evaluation Start: 07/27/21 09:03 Freq: Status: Active Protocol: Document 07/27/21 09:50 AMI (Rec: 07/27/21 10:01 AMI [id number]) Electronically Signed By Elliott Figueroa, PT 07/27/21 09:50 Subjective/History History History Pt is 46 yowf who presents with c/o R dorsal foot wound x ~ 2 wks with I&D performed . She reports initial injury was a piece of wood falling on her foot with resulting hematoma. During I&D wound was cultured and found to be MRSA+. Pt has been lless compliant with treatment up to this point with poor dressing changes and not finishing her IV infusion of abx. She has hx of polysubstance abuse. Subjective Subjective Pt c/o pain in the R foot wound today, 3-10 prior to dressing change. Wound Eval Wound Right Dorsal Foot Wound Type crush injury with hematoma Is This a Chronic Wound Yes Wound Length (cm) 12.0 Wound Width (cm) 10.2 Wound Bed Appearance Beefy Red,[place],Yellow,Slough, Eschar,Necrotic Percentage Granulated (%) 30 Percentage of Slough (%) 20 Percentage of Eschar (Black) (%) 50 Wound Margins Description Indistinct Undermining Position 10 o'clock Undermining Length (cm) 1.3 Surrounding Tissue Appearance [place],Bright Red Edema Type Pitting Edema Degree 1+ Query Text:1+ Trace, Barely Detectable, Rebound 15-30 seconds 2+ Moderate, Slight Indentation, Rebound 10-20 seconds 3+ Deep, Deeper Indentation, Rebound > 30 seconds 4+ Very Deep, Rebound > 60 seconds Edema Appearance Puffy,Red Drainage Description Serosanguineous Drainage Amount Large Dressing Status Soiled Wound Topical Solution/Irrigant Saline Irrigant Primary Dressing silicone contact layer Comment versatel Wound Secondary Dressing Type Silver Dressing,Gauze Pad, Gauze Roll/Wrap,Adhering Gauze Roll Comment opticell Ag x 3 Wound Debridement Method Sharps,Forceps,Gauze Wound Debridement Amount of Tissue Mini
--- NOTE | 2021-08-28 11:48 | HMH.RHREAS ---
Rehab Reassessment Rehab OP Re-assessment Start: 08/28/21 11:44 Freq: Status: Active Protocol: Document 08/28/21 11:45 AMI (Rec: 08/28/21 11:48 AMI [id number]) Electronically Signed By Elliott Figueroa, PT 08/28/21 11:45 Rehab Re-assessment Subjective Subjective Pt reports she does not like having the VAC dressing on and tends to turn off the pump more than recommended. Objective Objective Notes R dorsal foot wound: L= 11.3 cm, W= 7.6 cm, D= 0.4 cm. 95% granulation tisse. R medial foot wound: L= 1.0 cm , W= 1.0 cm. Assessment Progress Assessment Progressing as Expected Assessment Notes Pt has shown improvements in granulation tissue throughout the wound bed, but da-wound skin is macerated due to pt not following correct VAC dressing wear procedures. Patient goals met ST,2,3 Goals Not Met LT,2,3,4,5,6 Revised Goals none Plan Plan Continue per initial POC Frequency of Therapy 2 x/wk Duration of therapy 8 wks Time and Billing Re-Eval Time 15 Re-Eval Billing Units 1 PHYSICIAN CERTIFICATION: I certify the specified therapy services for Karen Alexis are required, authorized, and reviewed every 30 days.
--- NOTE | 2021-10-01 14:47 | HMH.RHREAS ---
Rehab Reassessment Rehab OP Re-assessment Start: 08/28/21 11:44 Freq: Status: Active Protocol: Document 10/01/21 14:45 AMI (Rec: 10/01/21 14:47 AMI [id number]) Electronically Signed By Elliott Figueroa, PT 10/01/21 14:45 Rehab Re-assessment Subjective Subjective Pt reports she continues to have pain in the R foot, but feels it is getting better without the VAC. Objective Objective Notes R dorsal foot wound: L= 9.3 cm , W= 6.8 cm, D= 0.0 cm. Wound 99% granulation tissue at this time. Copious drainage noted on current dressing. MLD performed to R LE for edema control and wound healing. Assessment Progress Assessment Progressing as Expected Assessment Notes Much improved granulation tissue with epithelialization beginning at wound borders. Continues to have increased drainage, most likely due to excessive dependent positioning of the R foot. Patient goals met ST,2,3 Goals Not Met LT,2,3,4,5,6 Revised Goals none Plan Plan Continue per initial POC Frequency of Therapy 2 x/wk Duration of therapy 8 wks Time and Billing Re-Eval Time 15 Re-Eval Billing Units 1 PHYSICIAN CERTIFICATION: I certify the specified therapy services for Karen Alexis are required, authorized, and reviewed every 30 days.
== END 2021-10-15 14:05 | disposition home or self-care (01) ==
LOC: PT 14:00
PROVIDERS: PCP Emergency Medicine; Visit Provider Podiatrist
DX: L97.519 Non-pressure chronic ulcer of other part of right foot with unspecified severity (principal)
CPT/HCPCS: 97140; 97162; 97164; 97597; 97598; 97605; 97606

== ENCOUNTER → 2021-10-16 14:08 | Outpatient (CLI) | payer MEDICAID, SELFPAY ==
[2021-10-16 14:30] LABS: Barbiturates Screen,Urine Negative ng/ml (<200); Benzodiazepines Screen,Urine Negative ng/ml (<200)
[2021-10-16 14:31] LABS: Amphetamine/Metha Screen,Urine Positive ng/ml (<1000)
[2021-10-16 14:32] LABS: Methadone Screen,Urine Negative ng/ml (<300)
[2021-10-16 14:33] LABS: Cannabinoid Screen,Urine Positive ng/ml (<50); Cocaine Screen,Urine Negative ng/ml (<300)
[2021-10-16 14:34] LABS: Opiate Screen,Urine Negative ng/ml (<300); Phencyclidine Screen,Urine Negative ng/ml (<25)
== END ==
PROVIDERS: Visit Provider Emergency Medicine
DX: Z79.899 Other long term (current) drug therapy (principal)
CPT/HCPCS: 80305

== ENCOUNTER → 2021-11-18 14:06 | Outpatient (CLI) | payer MEDICAID, SELFPAY ==
[2021-11-18 15:21] LABS: Amphetamine/Metha Screen,Urine Positive ng/ml (<1000)
[2021-11-18 15:22] LABS: Barbiturates Screen,Urine Negative ng/ml (<200)
[2021-11-18 15:24] LABS: Benzodiazepines Screen,Urine Negative ng/ml (<200); Cannabinoid Screen,Urine Positive ng/ml (<50)
[2021-11-18 15:25] LABS: Cocaine Screen,Urine Negative ng/ml (<300); Methadone Screen,Urine Negative ng/ml (<300)
[2021-11-18 15:26] LABS: Opiate Screen,Urine Negative ng/ml (<300)
[2021-11-18 15:27] LABS: Phencyclidine Screen,Urine Negative ng/ml (<25)
== END ==
PROVIDERS: Visit Provider Emergency Medicine
DX: Z79.899 Other long term (current) drug therapy (principal)
CPT/HCPCS: 80305

== ENCOUNTER → 2021-11-24 16:34 | Outpatient (CLI) | payer MEDICAID, SELFPAY ==
[2021-11-24 17:42] LABS: Alanine Aminotransferase 10 U/L (12-78); Albumin Level 4.4 g/dl (3.5-5.0); Albumin/Globulin Ratio 1.5 (1.1-1.8); Alkaline Phosphatase 57 U/L (38-126); Anion Gap 12.4 mEq/L (5-15); Aspartate Amino Transferase 25 U/L (14-36); Bilirubin,Total 0.3 mg/dl (0.2-1.3); Blood Urea Nitrogen 15 mg/dl (7-17); Calcium 8.8 mg/dl (8.4-10.2); Carbon Dioxide 28 mmol/L (22.0-30.0); Chloride 103 mmol/L (98-107); Estimated Glomerular Filt Rate 108 ml/min (>60); GFR (African American) 130 ML/MIN (>60); Glucose 97 mg/dl (74-100); Potassium 4.4 mmoL/L (3.5-5.1); Sodium 139 mmol/L (136-145); Total Protein,Serum 7.4 g/dl (6.3-8.2)
[2021-11-24 17:48] LABS: Basophils # 0.1 K/mm3 (0-0.2); Basophils % 0.9 % (0.1-2.0); C-Reactive Protein 4.1 mg/L (0-4); Eosinophils % 0.4 % (0.1-12.0); Hematocrit 36.7 % (37.0-47.0); Hemoglobin 11.2 g/dL (12.2-16.2); Lymphocytes # 1.9 K/mm3 (0.7-4.5); Lymphocytes % 36.3 % (10-50); Mean Corpuscular HGB Conc 30.5 g/dL (31.8-35.4); Mean Corpuscular Hemoglobin 28.6 pg (27.0-31.2); Mean Platelet Volume 10.3 fl (7.4-10.4); Monocytes # 0.3 K/mm3 (0.1-1.0); Monocytes % 5.7 % (1.7-9.3); Neutrophils # 2.9 K/mm3 (1.8-7.8); Neutrophils % 56.8 % (37.0-80.0); Platelet Count 160 K/mm3 (142-424); Red Blood Count 3.91 M/mm3 (4.20-5.40); Red Cell Distribution Width 15.3 % (11.5-17.5); White Blood Count 5.2 K/mm3 (4.8-10.8)
[2021-11-24 19:06] LABS: Erythrocyte Sedimentation Rate 61 mm/hr (0-20)
== END ==
PROVIDERS: Visit Provider Podiatrist
DX: S91.301D Unspecified open wound, right foot, subsequent encounter (principal); L03.115 Cellulitis of right lower limb; Z51.89 Encounter for other specified aftercare; L97.512 Non-pressure chronic ulcer of other part of right foot with fat layer exposed; S97.81XD Crushing injury of right foot, subsequent encounter
CPT/HCPCS: 36415; 80053; 85025; 85651; 86140

== ENCOUNTER → 2022-03-19 16:52 | Outpatient (CLI) | payer MEDICAID, SELFPAY ==
[2022-03-19 13:39] LABS: Amphetamine/Metha Screen,Urine Negative ng/ml (<1000); Barbiturates Screen,Urine Negative ng/ml (<200)
[2022-03-19 13:40] LABS: Benzodiazepines Screen,Urine Negative ng/ml (<200)
[2022-03-19 13:41] LABS: Cannabinoid Screen,Urine Positive ng/ml (<50); Cocaine Screen,Urine Negative ng/ml (<300)
[2022-03-19 13:42] LABS: Methadone Screen,Urine Negative ng/ml (<300)
[2022-03-19 13:43] LABS: Opiate Screen,Urine Positive ng/ml (<300); Phencyclidine Screen,Urine Negative ng/ml (<25)
== END ==
PROVIDERS: PCP Emergency Medicine; Visit Provider Emergency Medicine
DX: F41.9 Anxiety disorder, unspecified (principal)
CPT/HCPCS: 80305

== ENCOUNTER → 2022-05-19 17:02 | Outpatient (CLI) | payer MEDICAID, SELFPAY ==
[2022-05-19 18:30] LABS: Barbiturates Screen,Urine Negative ng/ml (<200); Benzodiazepines Screen,Urine Negative ng/ml (<200)
[2022-05-19 18:32] LABS: Cannabinoid Screen,Urine Positive ng/ml (<50); Cocaine Screen,Urine Negative ng/ml (<300)
[2022-05-19 18:33] LABS: Methadone Screen,Urine Negative ng/ml (<300)
[2022-05-19 18:34] LABS: Opiate Screen,Urine Negative ng/ml (<300); Phencyclidine Screen,Urine Negative ng/ml (<25)
[2022-05-19 19:11] LABS: Amphetamine/Metha Screen,Urine Positive ng/ml (<1000)
== END ==
PROVIDERS: PCP Emergency Medicine; Visit Provider Emergency Medicine
DX: Z79.899 Other long term (current) drug therapy (principal)
CPT/HCPCS: 80305

== ENCOUNTER → 2022-06-28 06:14 | Outpatient (CLI) | payer MEDICAID, SELFPAY ==
[2022-06-28 20:12] LABS: Amphetamine/Metha Screen,Urine Positive ng/ml (<1000)
[2022-06-28 20:13] LABS: Barbiturates Screen,Urine Negative ng/ml (<200)
[2022-06-28 20:14] LABS: Cannabinoid Screen,Urine Positive ng/ml (<50)
[2022-06-28 20:15] LABS: Cocaine Screen,Urine Negative ng/ml (<300); Methadone Screen,Urine Negative ng/ml (<300)
[2022-06-28 20:16] LABS: Opiate Screen,Urine Negative ng/ml (<300)
[2022-06-28 20:17] LABS: Phencyclidine Screen,Urine Negative ng/ml (<25)
[2022-06-28 20:25] LABS: Benzodiazepines Screen,Urine Negative ng/ml (<200)
== END ==
PROVIDERS: PCP Emergency Medicine; Visit Provider Emergency Medicine
DX: Z79.899 Other long term (current) drug therapy (principal)
CPT/HCPCS: 80305